=== PATIENT | male | born 1975 | race Caucasian/White ===

== ENCOUNTER 2019-11-04 01:38 | Observation (INO) | payer OTHER ==
[~2019-11-04] VITALS: Ht 182.9 cm; Wt 111.1 kg
[2019-11-04] VITALS (15 sets, daily range): BP systolic 119–195; BP diastolic 74–105
[~2019-11-04 01:38] MED LIST: AUGMENTIN 875875 MG PO; IBUPROFEN 800800 M1; KRILL OIL500 MG; MAGNESIUM100 MG; OMEPRAZOLE; OMEPRAZOLE40 MG PO; VICODIN 5-3001 EACH; ZANTAC 150MG T150 M1 PO; ZPAK PO
[2019-11-04] MEDS ORDERED: COZAAR 25 MG TA25 M1 PO (01:48)
[2019-11-04] MEDS ORDERED: FLAX SEED OIL1000 MG PO (01:49)
[2019-11-04] MEDS ORDERED: VITAMIN B-1100 M2 PO (01:50)
[2019-11-04] MEDS ORDERED: VITAMIN E1000 UNIT PO (01:50)
[2019-11-04] MEDS ORDERED: OSTERA TABLET1 EAC1 PO (01:50)
[2019-11-04] MEDS ORDERED: SUPER THERAVIT1 EACH PO (01:51)
[2019-11-04 02:20] LABS: ABSOLUTE EOSINOPHILS 0.2 thou/uL (0.0-0.7); ABSOLUTE LYMPHOCYTES 2.3 thou/uL (0.8-5.3); ABSOLUTE MONOCYTES 0.5 thou/uL (0.0-1.2); ABSOLUTE NEUTROPHILS 2.3 thou/uL (1.6-8.1); BASOPHILS 0.7 %; EOSINOPHILS 3.1 %; HEMATOCRIT 43.1 % (42.0-52.0); HEMOGLOBIN 14.8 gm/dL (14.0-18.0); LYMPHOCYTES 43.5 %; MCH 28.1 pg (26.0-34.0); MCHC 34.4 g/dL (28.0-37.0); MCV 81.8 fL (80.0-100.0); MONOCYTES 9.2 %; MPV 7.6 fl. (7.2-11.1); NUCLEATED RBCS 0 /100WBC; PLATELET COUNT* 228 thou/uL (150-400); POLYS 43.5 %; RBC 5.27 mil/uL (4.50-6.00); RDW-CV 13.4 % (10.5-14.5); WBC 5.3 thou/uL (4.0-11.0)
[2019-11-04 02:28] LABS: CALCIUM 9.6 mg/dL (8.5-10.1); POTASSIUM 3.3 mmol/L (3.5-5.1)
[2019-11-04 02:33] LABS: ALBUMIN 4.3 g/dL (3.4-5.0); TOTAL BILIRUBIN 0.3 mg/dL (<0.1-1.0); TOTAL PROTEIN 7.4 g/dL (6.4-8.2)
[2019-11-04 02:40] LABS: PROTIME 10.2 Seconds (9.20-11.50)
--- NOTE | 2019-11-04 04:40 | NUR ---
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
--- NOTE | 2019-11-04 07:38 | NUR ---
5892 assumed care of patient. see documented assessment. PT IS TELE STATUS IN THE ICU. MONITOR SHOWS CONTROLLED ATRIAL FIB. REPORT CALLED TO BERTRAND ON TELEMETRY
--- NOTE | 2019-11-04 10:08 | NUR ---
PATIENT HAS CONVERTED TO SINUS RHYTHM. EKG COMPLETED AND PHYSICIAN NOTIFIED
[2019-11-04 10:23] LABS: AMP/METHAMP Negative (Negative); BARBITURATES Negative (Negative); BENZODIAZEPINES Negative (Negative); COCAINE Negative (Negative); METHADONE Negative (Negative); OPIATES Negative (Negative); PCP Negative (Negative); THC Negative (Negative)
[2019-11-04 10:30] LABS: CHOLESTEROL 194 mg/dL (<200); HDL CHOLESTEROL 33 mg/dL (>40); LDL CHOLESTEROL 113 mg/dL (<100); TC:HDL 5.9 Ratio (Not establshd); TRIGLYCERIDE 243 mg/dL (<150); VLDL 49 mg/dL (<40)
[2019-11-04 10:32] LABS: SERUM ASSESSMENT Clear
--- NOTE | 2019-11-04 15:38 | EKG ---
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1975 Requested By: Yeimy Escobar Order Number: [id number] MD: Carlos Alberto Schulte Measurements Intervals [place] Rate: 101 P: WA: QRS: 45 QRSD: 109 T: 25 QT: 373 QTc: 484 Interpretive Statements Atrial fibrillation Compared to ECG 02/26/2013 20:15:01 Sinus rhythm no longer present Electronically Signed On 11-04-2019 15:38:30 COUNTERINTELLIGENCE AGENT by Carlos Alberto Schulte [email or web address] <ELECTRONICALLY SIGNED> By: Carlos Alberto Schulte MD, [facility] 11/04/19 1538 0156 5 Carlos Alberto Schulte MD, FACC /EPI
--- NOTE | 2019-11-04 16:33 | NUR ---
REPORT CALLED TO SKINNY ON TELEMETRY
--- NOTE | 2019-11-04 16:38 | NUR ---
TO 225 WITH ALL RECORDS AND BELONGINGS
--- NOTE | 2019-11-04 17:01 | NUR ---
RECEIEVED REPORT FROM SARAH RN IN ICU OF EXPECTED ADMISSION AT 1620- PT ARRIVED TO ROOM 225 VIA W/C PER TECH AT 1640, AT SIDE- PT NOTED TO BE STEADY ON FEET AND UP AD-ALIYAH- ACID POLYMERIZATION OPERATOR PLACED ORDERED, TRACING SR-VS 98.0 20 137/74 73 95% ON RA- IV NOTED TO LEFT AC INTACT AND SL-PT REPORTS LAST BM 11/03/19- DENIES ANY C/O PAIN/DISCOMFORT- CALL LIGHT AND PERSONAL BELONGINGS WITH IN REACH- PT MAKES NEEDS KNOWN- ALL NEEDS MET AT THIS TIME-JUSTINE
[2019-11-05] VITALS: BP 132/78
[2019-11-05 03:05] LABS: GLYCOHEMOGLOBIN (HGB A1C) 5.4 % (4.8-5.6)
[2019-11-05 03:30] VITALS: BP 109/68
--- NOTE | 2019-11-05 07:20 | NUR ---
CHANGE OF SHIFT BEDSIDE REPORT GIVEN PATIENT SEEN AT BEDSIDE, IN BED RESTING ASSUMED PATIENT CARE
--- NOTE | 2019-11-05 09:19 | NUR ---
ASSUMED PATIENT CARE AT 1900. ASSESSMENT COMPLETED CHARTED. PATIENT IS NSR ON THE MONITOR. HOURLY ROUNDING IN PLACE FOR PATIENT SAFETY. CLWR.
[2019-11-05] MEDS ORDERED: CARDIZEM CD120 MG PO (09:37)
[2019-11-05] MEDS ORDERED: LIPITOR 40 MG T40 M1 PO (09:37)
[2019-11-05] MEDS ORDERED: FLECAINIDE ACET50 M1 PO (09:37)
--- NOTE | 2019-11-05 10:43 | EKG ---
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 11/05/19 1043 0944 Sammy Darby MD, FACC /EPI
[2019-11-05 11:48] VITALS: BP 138/80
--- NOTE | 2019-11-05 12:24 | 2DMMODE ---
[place] [address] 2 D/M-MODE ECHOCARDIOGRAM Name: HEIDY FAYE Room: [address] IN [facility]#: [id number] Admission: 11/04/19 Attend Phys: Charles Sauceda, Discharge: Date of : 73 Date of Service: 11/05/19 1224 Report #: [id number] THIS REPORT FOR: //name// APPROVED REPORT Study performed: 11/05/2019 10:46:27 EXAM: Comprehensive 2D, Doppler, and color-flow Echocardiogram Patient Location: Bedside BSA: 2.30 HR: 72 bpm BP: 109/68 mmHg Other Information Study Quality: Good Indications Atrial Fibrillation Hypertension/HDD 2D Dimensions IVSd: 13.46 (7-11mm) LVOT Diam: 24.02 (18-24mm) LVDd: 49.55 mm PWd: 11.47 (7-11mm) Ascending Ao: 28.31 (22-36mm) LVDs: 33.52 (25-40mm) Aortic Root: 29.91 mm Volumes Left Atrial Volume (Systole) LA ESV Index: 24.40 mL/m2 Aortic Valve AoV Peak Vincenzo.: 0.99 m/s AO Peak Gr.: 3.92 mmHg LVOT Max P.88 mmHg AO Mean Gr.: 2.22 mmHg LVOT Mean P.22 mmHg LVOT Max V: 1.10 m/s AO V2 VTI: 17.04 cm LVOT Mean V: 0.68 m/s ANA MARÍA (VTI): 5.18 cm2 LVOT V1 VTI: 19.47 cm Mitral Valve E/A Ratio: 1.08 MV Decel. Time: 211.34 ms MV E Max Vincenzo.: 0.55 m/s MV PHT: 61.29 [place] [address] 2 D/M-MODE ECHOCARDIOGRAM Name: HEIDY FAYE Room: [address] IN [facility]#: [id number] Admission: 11/04/19 Attend Phys: Charles Sauceda, Discharge: Date of : 73 Date of Service: 11/05/19 1224 Report #: [id number] MVA (PHT): 3.59 cm2 TDI E/Lateral E': 6.11 E/Medial E': 5.00 Medial E' Vincenzo.: 0.11 m/s Lateral E' Vincenzo.: 0.09 m/s Pulmonary Valve PV Peak Vincenzo.: 0.89 m/s PV Peak Gr.: 3.20 mmHg Tricuspid Valve RAP Estimate: 5.00 mmHg TR Peak Gr.: 8.32 mmHg RVSP: 13.32 mmHg PA Pressure: 13.32 mmHg Left Ventricle The left ventricle is normal size. There is normal LV segmental wall motion. Mild concentric left ventricular hypertrophy. Left ventricular systolic function is normal. The left ventricular ejection fraction is within the normal range. LVEF is 60-65%. Right Ventricle The right ventricle is normal size. The right ventricular systolic function is normal. Atria The left atrium size is normal. The right atrium size is normal. Aortic Valve The aortic valve is normal in structure. No aortic regurgitation is present. There is no aortic valvular stenosis. Mitral Valve The mitral valve is normal in structure. Trace mitral valve regurgitation noted. No evidence of mitral valve stenosis. Tricuspid Valve The tricuspid valve is normal in structure. Trace tricuspid regurgitation. Pulmonic Valve The pulmonary valve is normal in structure. There is no pulmonic valvular regurgitation[place] [address] 2 D/M-MODE ECHOCARDIOGRAM Name: YUNIERHEIDY ANDERSON Room: [address]#: [id number] Admission: 11/04/19 Attend Phys: Charles Sauceda, Discharge: Date of : 73 Date of Service: 11/05/19 1224 Report #: [id number] The aortic root is normal in size. IVC is normal in size and collapses >50% with inspiration. Pericardium There is no pericardial effusion. <Conclusion> Mild concentric left ventricular hypertrophy. LVEF is 60-65%. <ELECTRONICALLY SIGNED> By: Sammy Darby MD, FACC 11/05/19 1224 1224 1224 Sammy Darby MD, FACC /INF
--- NOTE | 2019-11-05 12:32 | EKG ---
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 : 1975 Requested By: Carlos Alberto Schulte Order Number: [id number] Angela MD: Sammy Darby Measurements Intervals [place] Rate: 78 P: 51 [place]: 176 QRS: -9 QRSD: 115 T: 29 QT: 391 QTc: 446 Interpretive Statements Sinus rhythm Nonspecific intraventricular conduction delay Compared to ECG 11/04/2019 09:44:56 Intraventricular conduction delay now present Electronically Signed On 11-05-2019 12:32:03 LOOM CHANGER by Sammy Darby [email or web address] <ELECTRONICALLY SIGNED> By: Sammy Darby MD, [facility] 11/05/19 1232 1218 1218 Sammy Darby MD, [facility] /EPI
[2019-11-05 12:56] VITALS: BP 138/80
--- NOTE | 2019-11-05 13:20 | NUR ---
PATIENT DISCHARGED TO HOME IV AND HEART MONITOR REMOVED DISCHARGE ORDERS GIVEN, REVIEWED, ACKNOWLEDGED AND SIGNED COPIES GIVEN PERSOANL BELONGINGS RETURNED PATIENT WALKED OUT TO WAITING CAR
--- NOTE | 2019-11-05 16:05 | CON ---
[address] [address] CONSULTATION Name: HEIDY FAYE Room: [address] [place]#: [id number] Admission: 11/04/19 Attend Phys: Charles Sauceda MD Discharge: 11/05/19 Date of : 73 Report #: [id number] THIS REPORT FOR: //name// CC: Charles Chaney INDICATION: New onset atrial fibrillation with rapid ventricular response rate. HISTORY OF PRESENT ILLNESS: The patient is a very pleasant 43-year-old gentleman with hypertension and dyslipidemia. He has been having some intermittent palpitations recently, especially at night that wakes him from sleep. He does have sleep apnea for which he uses CPAP most of the time. He was found to be in atrial fibrillation with rapid ventricular response rate upon admission to the hospital as well as hypertensive. The patient was placed on a diltiazem drip and converted to sinus rhythm. He denies any chest pain throughout this episode. Troponins were negative. A recent calcium score was 0. Cardiac risk factors include hypertension and dyslipidemia as well as family history of coronary artery disease. ALLERGIES: CATS AND SHRIMP. HOME MEDICATIONS: Krill oil, omeprazole, ranitidine, losartan 100 mg daily, flaxseed oil 1000 mg daily, B one tablet daily, Ostera one tablet daily, vitamin E one capsule daily, multivitamin one tablet daily. PAST MEDICAL HISTORY: 1. Hypertension. 2. Obstructive sleep apnea. 3. Hyperlipidemia. 4. Tonsillectomy, remotely. SOCIAL HISTORY: The patient is a lifelong nonsmoker, drinks alcohol occasionally. He is . His is in attendance with him. REVIEW OF SYSTEMS: A 14-point review of systems otherwise negative. PHYSICAL EXAMINATION: VITAL SIGNS: Blood pressure 142/100, pulse 81 and regular. GENERAL: This is a very pleasant gentleman who is in no distress. Mood and affect appropriate. HEENT: The patient is wearing glasses. Extraocular muscles intact. Mucous membranes moist. NECK: Shows no jugular venous distention. There are no carotid bruits. CHEST: Reveals clear lung jiang without wheezes or rales. CARDIOVASCULAR: Reveals a regular rhythm. Normal S1 and S2. I do not appreciate gallop or murmur. ABDOMEN: Reveals normal bowel sounds. The abdomen is soft, [place] [address] CONSULTATION Name: HEIDY FAYE [address] [id number] Admission: 11/04/19 Attend Phys: Charles Sauceda MD Discharge: 11/05/19 Date of : 73 Report #: [id number] EXTREMITIES: Shows no edema. Peripheral pulses are 2+ and easily palpable. SKIN: Warm and dry. A 12-lead EKG on arrival showed atrial fibrillation with rapid ventricular response rate. LABORATORY DATA: Labs are reviewed. Sodium 141, potassium 3.8, chloride 105, bicarbonate 29, BUN 15, creatinine 1.0. Serum glucose 100. Troponins less than 0.04 and less than 0.06. Lipid profile: Total cholesterol 194, triglycerides 243, HDL 33, LDL 113. White blood cell count 5.3, hemoglobin 14.8, platelet count 228,000. IMPRESSION AND RECOMMENDATIONS: 1. New onset atrial fibrillation, presently in sinus rhythm. We will start diltiazem orally and add flecainide 50 mg twice daily in an effort to maintain sinus rhythm. CHADS score is 1 for hypertension. I am not starting anticoagulation at this time. 2. Hypertension. We will resume the patient's home medications and make adjustments as needed. 3. Dyslipidemia. LDL cholesterol remains mildly elevated. We will adjust lipid lowering agents at this time. 4. Hypercoagulable state. <ELECTRONICALLY SIGNED> By: Carlos Alberto Schulte MD, FACC 11/05/19 1605 1456 2300Mictray Schulte MD, FACC /nt
== END 2019-11-05 13:20 | disposition home or self-care (01) ==
LOC: M.ERS 01:38 → M.2W 02:55 → M.TBA-ER 02:55 → M.2W 02:55 → M.ICU 03:14 → M.2W 16:39
PROVIDERS: Internal Medicine; Personal Emergency Response Attendant; ADMIT Internal Medicine
DX: I48.20 Chronic atrial fibrillation, unspecified (principal); I16.0 Hypertensive urgency; G47.30 Sleep apnea, unspecified; E87.6 Hypokalemia; R73.9 Hyperglycemia, unspecified; D68.59 Other primary thrombophilia; Z87.891 Personal history of nicotine dependence; Z79.899 Other long term (current) drug therapy

== ENCOUNTER 2020-04-14 10:44 | Emergency (ER) | payer OTHER ==
[~2020-04-14] VITALS: Ht 182.9 cm; Wt 104.3 kg
[~2020-04-14 10:44] MED LIST changes: +CARDIZEM CD120 MG PO; +COZAAR 25 MG TA25 M1 PO; +FLAX SEED OIL1000 MG PO; +FLECAINIDE ACET50 M1 PO; +LIPITOR 40 MG T40 M1 PO; +OSTERA TABLET1 EAC1 PO; +SUPER THERAVIT1 EACH PO; +VITAMIN B-1100 M2 PO; +VITAMIN E1000 UNIT PO
[2020-04-14] MEDS ORDERED: CARVEDILOL12.5 MG PO (10:53)
[2020-04-14 11:05] LABS: ABSOLUTE EOSINOPHILS 0.1 thou/uL (0.0-0.7); ABSOLUTE LYMPHOCYTES 1.3 thou/uL (0.8-5.3); ABSOLUTE MONOCYTES 0.4 thou/uL (0.0-1.2); ABSOLUTE NEUTROPHILS 2.4 thou/uL (1.6-8.1); BASOPHILS 1.1 %; EOSINOPHILS 1.9 %; HEMATOCRIT 42.5 % (42.0-52.0); HEMOGLOBIN 14.8 gm/dL (14.0-18.0); LYMPHOCYTES 30.9 %; MCH 28.9 pg (26.0-34.0); MCHC 34.8 g/dL (28.0-37.0); MCV 83.2 fL (80.0-100.0); MONOCYTES 9.6 %; MPV 7.5 fl. (7.2-11.1); NUCLEATED RBCS 0 /100WBC; PLATELET COUNT* 242 thou/uL (150-400); POLYS 56.5 %; RBC 5.11 mil/uL (4.50-6.00); RDW-CV 13.5 % (10.5-14.5); WBC 4.3 thou/uL (4.0-11.0)
[2020-04-14 11:17] LABS: APTT 28.4 Seconds (25.0-31.3); INR 1.1; PROTIME 11.1 Seconds (9.20-11.50)
[2020-04-14 11:18] LABS: ALBUMIN 4.1 g/dL (3.4-5.0); CALCIUM 9.2 mg/dL (8.5-10.1); POTASSIUM 3.6 mmol/L (3.5-5.1); TOTAL BILIRUBIN 0.6 mg/dL (<0.1-1.0); TOTAL PROTEIN 7.5 g/dL (6.4-8.2)
[2020-04-14 12:15] VITALS: BP 132/75
--- NOTE | 2020-04-15 16:17 | EKG ---
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
== END 2020-04-14 12:18 | disposition home or self-care (01) ==
LOC: M.ERS 10:44
PROVIDERS: Personal Emergency Response Attendant
DX: R00.0 Tachycardia, unspecified (principal); I10 Essential (primary) hypertension; Z90.49 Acquired absence of other specified parts of digestive tract; Z91.013 Allergy to seafood; Z91.048 Other nonmedicinal substance allergy status

== ENCOUNTER → 2020-05-02 | Outpatient (CLI) | payer OTHER ==
[~2020-05-02] MED LIST changes: +CARVEDILOL12.5 MG PO
--- NOTE | 2020-05-02 17:10 | CARDNUC ---
[place] [address] CARDIAC NUCLEAR IMAGING REPORT Name: HEIDY FAYE Room: [facility]#: [id number] Admission: 05/02/20 Attend Phys: Carlos Alberto Schulte, Discharge: Date of : 73 Date of Service: 05/02/20 1709 Report #: [id number] THIS REPORT FOR: cc: Bonnie Chaney Tammy RNP Liston, Michael J. MD [facility] ~ APPROVED REPORT Imaging Protocol: Stress Tc-99m/Rest Tc-99m 1 day Study performed: 05/02/2020 12:30:00 Indication: PAfib, Tachycardia, Palpitations. Patient Location: Out-Patient Stress Tech: Sara Funes Stress Nurse: Roxy Knox RN Ht: 6 ft 0 in Wt: 224 lbs BSA: 2.24 m2 BMI: 30.37 Medical History Medical History: Paroxysmal Atrial Fibrillation, ADAM-CPAP, Tachycardia, Palpitations, Cardiac Event monitor, HTN, HLD, Former Smoker. Medications: Atorvastatin, Carvedilol, Diltiazem, Flecainide, Losartan. Allergies: No known drug allergies Cardiac Risk Factors: FHX of CAD, HTN, Hyperlipidemia, Past Smoker, Paroxysmal AFib. Previous Cardiac Procedures: None Pretest Chest Pain Characteristics: No chest pain Exercise History: Physically active Physical Disabilities: None noted. Meds Held (24 hrs): Carvedilol. Resting Data Rest SPECT myocardial perfusion imaging was performed in supine position 30 minutes following the intravenous injection of 11.7 mCi of Tc-99m Sestamibi. Time of rest injection: 12:55 The images were gated to evaluate regional wall motion and calculate left ventricular ejection fraction. Administration Route: IV Administration Site: [place] [address] CARDIAC NUCLEAR IMAGING REPORT Name: HEIDY FAYE Room: [facility]#: [id number] Admission: 05/02/20 Attend Phys: Carlos Alberto Schulte, Discharge: Date of : 73 Date of Service: 05/02/20 1709 Report #: [id number] Exercise Stress At peak stress, the patient was injected intravenously with 33.6mCi of Tc-99m Sestamibi. Time of stress injection: 14:30 Administration Route: IV Administration Site: Right Hand Heart Rate at time of stress injection: 157 bpm. Patient continued to exercise for 1 minute(s). Gated Stress SPECT was performed 35 minutes after stress injection. The images were gated to evaluate regional wall motion and calculate left ventricular ejection fraction. Prone imaging was performed. Stress Test Details Stress Test: Exercise stress testing was performed using a David protocol. HR Max Heart Rate (APMHR): 175 bpm Resting HR: 65 bpm Target HR (85% APMHR): 148 bpm Max HR Achieved: 169 bpm % of APMHR: 96 Recovery HR: 87 bpm HR response to stress: Normal HR response to stress BP Resting BP: 138/92 mmHg Max BP: 189/55 mmHg Recovery BP: 126/79 mmHg BP response to stress: Normal blood pressure response to stress. ECG Resting ECG: Sinus Rhythm Stress ECG: Sinus Tachycardia ST Change: None Arrhythmia: None Recovery ECG: Sinus Rhythm Recovery ST Change: None Recovery Arrhythmia: None Clinical Reason for Termination: Maximal effort, Completed protocol, Patient Request. Stress Symptoms: Dyspnea, Fatigue. Exercise duration: 9 min 38 sec Exercise capacity: 11.19 [place] [address] CARDIAC NUCLEAR IMAGING REPORT Name: HEIDY FAYE Room: [facility]#: [id number] Admission: 05/02/20 Attend Phys: Carlos Alberto Schulte, Discharge: Date of : 73 Date of Service: 05/02/20 1709 Report #: [id number] Overall Exercise Capacity for Age: Normal The patient tolerated standard Advid protocol exercise without significant cardiac symptoms. Nurse Comments A 44 year old male presented for a David Protocol Nuclear Stress Test r/t Paroxysmal AFib, Palpitations, Tachycardia. Treadmill well tolerated to stage 4. Recovery unremarkable. Patient was escorted by staff to Nuclear Medicine for imaging. Patient was stable and stated he felt good at that time. Exercise Capacity - Normal. Stress ECG Conclusion The baseline twelve-lead EKG shows sinus rhythm without significant ST segment or T wave abnormality. EKGs obtained during and post exercise stress shows sinus rhythm and sinus tachycardia with no significant ST segment or T wave changes when compared to baseline. There were no stress-induced arrhythmias. Study Quality Study: Good Artifact: Mild Diaphragmatic artifact Study Data At rest, the left ventricular ejection fraction was 61%.. Post stress, the left ventricular ejection was 66%.. TID = 0.95. Perfusion Perfusion images obtained in the supine position at rest and post exercise stress show mild photopenia in the inferior wall that resolved completely with post stress prone imaging suggesting diaphragmatic attenuation artifact. There were no significant fixed or reversible defects noted. Wall Motion Normal left ventricular wall motion. Nuclear Conclusion ECG Findings: negative for ischemia Clinical Findings: negative for ischemia Nuclear Findings: negative for ischemia Exercise Capacity: normal Left Ventricular Function: normal Risk Study: low Myocardial perfusion images show no defect to suggest infarct or ischemia. Left ventricular systolic function [place] [address] CARDIAC NUCLEAR IMAGING REPORT Name: YUNIER,RYAN Chio Room: [facility]#: [id number] Admission: 05/02/20 Attend Phys: Carlos Alberto Schulte, Discharge: Date of : 73 Date of Service: 05/02/20 1709 Report #: [id number] studies. This is a low risk study. <Conclusion> The baseline twelve-lead EKG shows sinus rhythm without significant ST segment or T wave abnormality. EKGs obtained during and post exercise stress shows sinus rhythm and sinus tachycardia with no significant ST segment or T wave changes when compared to baseline. There were no stress-induced arrhythmias. <ELECTRONICALLY SIGNED> By: Carlos Alberto Schulte MD, FACC 05/02/20 170 08 08 Carlos Alberto Schulte MD, FACC /INF
== END ==
LOC: M.NUC 04-21 09:33
PROVIDERS: ATTEND Internal Medicine Cardiovascular Disease
DX: I48.0 Paroxysmal atrial fibrillation (principal)

== ENCOUNTER → 2021-08-24 | Outpatient (CLI) | payer OTHER | LOC: M.CT 08:55 | PROVIDERS: ATTEND Internal Medicine Cardiovascular Disease | DX: Z13.6 Encounter for screening for cardiovascular disorders (principal); I25.10 Atherosclerotic heart disease of native coronary artery without angina pectoris ==